=== PATIENT | female | born 1990 | race Caucasian/White ===

== ENCOUNTER 2018-06-08 07:58 | Emergency (ER) | payer MEDICAID ==
[~2018-06-08] VITALS: Ht 165.1 cm; Wt 123.5 kg
[2018-06-08 08:10] VITALS: BP 148/77
--- NOTE | 2018-06-08 08:23 | NUR ---
PT AMBULATORY TO ROOM 1 W/ C/O COUGH W/ MUCUS STARTED A FEW DAYS AGO. PT DENIES FEVERS. +CHILLS. PT C/O STUFFY NOSE AND SORE THROAT. PT RESTING ON GURNEY. MARK.
[2018-06-08] MEDS ORDERED: IBUPROFEN 600 MG TABLET ONE (08:55)
[2018-06-08] MEDS ORDERED: ACETAMINOPHEN 325 MG TABLET ONE (08:55)
[2018-06-08] MEDS ORDERED: IBUPROFEN 600 MG TABLET PO ONE (09:00)
[2018-06-08] MEDS ORDERED: ACETAMINOPHEN 325 MG TABLET PO ONE (09:00)
[2018-06-08 09:17] LABS: RAPID INFLUENZA A Negative (Negative); RAPID INFLUENZA B Negative (Negative)
--- NOTE | 2018-06-08 09:22 | NUR ---
PT CHART REVIEWED AND PLACED FOR RECHECK.
== END 2018-06-08 09:51 | disposition home or self-care (01) ==
LOC: ED 09:48
DX: J06.9 Acute upper respiratory infection, unspecified (principal); R05 Cough
CPT/HCPCS: 71046; 87400; 93005; 99284

== ENCOUNTER 2018-08-09 22:18 | Inpatient (IN) | payer MEDICAID ==
[~2018-08-09] VITALS: Ht 167.6 cm; Wt 125.2 kg
--- NOTE | 2018-08-09 22:53 | NUR ---
PT LAYING IN [facility] NOTED. L JAW/FACE SWOLLEN X TODAY. PT REPORTS BEING SEEN BY DENTIST YESTERDAY, DX W DENTAL ABCESS AND RX'D AMOXICILLIN. WORSENING S/S DESPITE ABX. PT REPORTS SORE THROAT AND PAIN WITH SWALLOWING. AIRWAY PATENT, SPEECH CLEAR. PT MANAGING OWN SECRETIONS. PT DENIES FEVER/N/V.
[2018-08-09] MEDS ORDERED: LIDOCAINE-MPF 1%, 5ML ONE (23:03)
[2018-08-09] MEDS ORDERED: MORPHINE SULFATE 4 MG/ML, 1ML ONE (23:04)
[2018-08-09] MEDS ORDERED: BUPIVACAINE 0.25% ONE (23:04)
[2018-08-09 23:14] LABS: BASOPHILS # (AUTO) 0.01 x10^3/uL (0-0.1); BASOPHILS % (AUTO) 0 % (0-1); EOSINOPHILS # (AUTO) 0.08 x10^3/uL (0-0.4); EOSINOPHILS % (AUTO) 1 % (1-7); LYMPHOCYTES # (AUTO) 1.82 x10^3/uL (1-3.4); LYMPHOCYTES % (AUTO) 20 % (22-44); MD NO; MEAN CORPUSCULAR HEMOGLOBIN 31.3 pg (27.0-34.8); MEAN CORPUSCULAR HGB CONC 33.5 g/dL (32.4-35.8); MEAN CORPUSCULAR VOLUME 93.5 fL (80-100); MONOCYTES # (AUTO) 0.27 x10^3/uL (0.2-0.8); MONOCYTES % (AUTO) 3 % (2-9); NEUTROPHILS # (AUTO) 6.92 x10^3/uL (1.8-6.8); NEUTROPHILS % (AUTO) 76 % (42-75); PLATELET COUNT 204 x10^3/uL (130-400); RED BLOOD COUNT 4.45 x10^6/uL (3.82-5.3); RED CELL DISTRIBUTION WIDTH 13.2 % (9.6-15.2)
[2018-08-09 23:24] LABS: ANION GAP 4 mmol/L (5-15); CALCIUM 8.9 mg/dL (8.5-10.1); CHLORIDE 107 mmol/L (98-107); CREATININE 1.12 mg/dL (0.55-1.02)
--- NOTE | 2018-08-09 23:24 | NUR ---
IV ESTABLISHED. PT MEDICATED PER EMAR. SPO2 MONITORING IN PLACE. PT PLACED ON 2L BY NC FOR SUPPORT WHILE IN IMAGING.
[2018-08-09] MEDS ORDERED: LIDOCAINE-MPF 1%, 5ML INFIL ONE (23:30)
[2018-08-09] MEDS ORDERED: BUPIVACAINE 0.25% INFIL ONE (23:30)
[2018-08-09] MEDS ORDERED: MORPHINE SULFATE 4 MG/ML, 1ML IVPush ONE (23:30)
[2018-08-10] MEDS ORDERED: OMNIPAQUE 350 MG/ML, 100ML BOTTLE ONE
[2018-08-10] MEDS ORDERED: AMPICILLIN/SULBACTAM 3 GM in SODIUM CHLORIDE 0.9% 100 ML IV ONE
--- NOTE | 2018-08-10 00:13 | NUR ---
ABX HUNG. NO BC DRAWN PRIOR TO ABX ADM PER ERP. SPO2 MONITORING IN PLACE. SPO2 >90% ON 2L BY NC. PT REPORTS IMPROVEMENT IN PAIN WITH MEDICATIONS
--- NOTE | 2018-08-10 00:44 | NUR ---
PT AWARE OF POC (ADMIT) AND DEMONSTRATES UNDERSTANDING. PT RESTING COMFORTABLY IN GURNEY W EYES CLOSED. PT REPORTS IMPROVEMENT IN PAIN. VS WNL. AWAITING ADMIT
--- NOTE | 2018-08-10 01:02 | NUR ---
REPORT TO ANGELICA BECKWITH.
[2018-08-10] MEDS ORDERED: ONDANSETRON 2MG/ML, 2ML IVPush PRN (01:30)
[2018-08-10] MEDS ORDERED: morphine SULFATE 10 MG/ML, 1ML IVPush PRN (01:30)
[2018-08-10] MEDS: HYDROcodone/APAP 5/325 TABLET PO PRN ×2 (01:47→19:54)
[2018-08-10 02:00] VITALS: BP 119/79
[2018-08-10 07:00] VITALS: BP 106/72
[2018-08-10] MEDS: CLINDAMYCIN PMX 600MG/50ML 50 ML IV SCH ×2 (09:41→17:41)
[2018-08-10] MEDS: SODIUM CHLORIDE 0.9% 1,000 ML IV SCH ×2 (11:33→17:41)
[2018-08-10] MEDS: ACETAMINOPHEN 325 MG TABLET PO PRN (12:08)
[2018-08-10 15:36] VITALS: BP 102/69
[2018-08-10 20:05] VITALS: BP 116/79
[2018-08-11] MEDS: CLINDAMYCIN PMX 600MG/50ML 50 ML IV SCH ×3 (01:01→16:24)
[2018-08-11 02:47] VITALS: BP 127/64
[2018-08-11] MEDS: SODIUM CHLORIDE 0.9% 1,000 ML IV SCH ×2 (04:03→12:14)
[2018-08-11] MEDS: ACETAMINOPHEN 325 MG TABLET PO PRN (05:39)
[2018-08-11 05:59] LABS: BASOPHILS # (AUTO) 0.03 x10^3/uL (0-0.1); BASOPHILS % (AUTO) 1 % (0-1); EOSINOPHILS # (AUTO) 0.14 x10^3/uL (0-0.4); EOSINOPHILS % (AUTO) 3 % (1-7); LYMPHOCYTES # (AUTO) 2.05 x10^3/uL (1-3.4); LYMPHOCYTES % (AUTO) 35 % (22-44); MD NO; MEAN PLATELET VOLUME 9.2 fL (7.4-10.4); MONOCYTES # (AUTO) 0.42 x10^3/uL (0.2-0.8); MONOCYTES % (AUTO) 7 % (2-9); NEUTROPHILS # (AUTO) 3.18 x10^3/uL (1.8-6.8); NEUTROPHILS % (AUTO) 55 % (42-75); PLATELET COUNT 185 x10^3/uL (130-400); RED BLOOD COUNT 4.25 x10^6/uL (3.82-5.3); RED CELL DISTRIBUTION WIDTH 13.3 % (9.6-15.2)
[2018-08-11 06:08] LABS: ANION GAP 5 mmol/L (5-15); CALCIUM 8.4 mg/dL (8.5-10.1); CHLORIDE 109 mmol/L (98-107); CREATININE 0.95 mg/dL (0.55-1.02)
[2018-08-11 06:45] VITALS: BP 117/77
[2018-08-11] MEDS: KETOROLAC 30 MG/1 ML IVPush SCH ×2 (08:29→15:09)
[2018-08-11] MEDS: LACTOBACILLUS 1GM/ PACKET PO SCH ×2 (08:29→16:23)
[2018-08-11] MEDS ORDERED: IBUP-1222 PO (15:06)
[2018-08-11] MEDS ORDERED: ONDA4TAB13 SL (15:06)
[2018-08-11] MEDS ORDERED: CLIN300C8 PO (15:06)
[2018-08-11] MEDS ORDERED: ACID1GRA3 PO (15:06)
[2018-08-11 15:45] VITALS: BP 122/76
== END 2018-08-11 18:22 | disposition home or self-care (01) | DRG 155 ==
LOC: ED 22:59 → OBSVTOIN 08-10 00:44 → EDIP 08-10 00:44 → INTOOBSV 08-10 00:44 → 3NE 08-10 01:30
PROVIDERS: ADMIT Internal Medicine; ATTEND Internal Medicine
PROC: 3E0T3BZ Introduction of Anesthetic Agent into Peripheral Nerves and Plexi, Percutaneous Approach (ICD-10-PCS; principal; 2018-08-10)
DX: K11.21 Acute sialoadenitis (principal); Z68.41 Body mass index [BMI] 40.0-44.9, adult; L03.221 Cellulitis of neck; R13.10 Dysphagia, unspecified; E66.01 Morbid (severe) obesity due to excess calories; F17.210 Nicotine dependence, cigarettes, uncomplicated; L04.9 Acute lymphadenitis, unspecified; Z98.891 History of uterine scar from previous surgery
CPT/HCPCS: 36415; 70491; 80048; 85025; G0378; J0295; J1885; Q9967; J7030